=== PATIENT | female | born 1960 | race Caucasian/White ===

== ENCOUNTER 2024-12-08 12:03 | Observation (INO) ==
[2024-12-08 13:46] LABS: BASOPHILS # (AUTO) 0.1 X10^3/uL (0.0-0.1); BASOPHILS % (AUTO) 0.9 % (0.2-1.0); EOSINOPHILS # (AUTO) 0.1 x10^3/uL (0.0-0.2); HEMOGLOBIN 13.7 g/dL (12.0-16.0); LYMPHOCYTES # (AUTO) 0.6 X10^3/uL (1.3-2.9); LYMPHOCYTES % (AUTO) 8.9 % (21.0-51.0); MEAN CORPUSCULAR HEMOGLOBIN 31.8 pg (27.0-34.0); MEAN CORPUSCULAR HGB CONC 35.1 g/dL (33.0-35.0); MEAN CORPUSCULAR VOLUME 90.6 fL (80.0-100.0); MEAN PLATELET VOLUME 8.3 fL (7.4-11.0); MONOCYTES # (AUTO) 0.4 x10^3/uL (0.3-0.8); MONOCYTES % (AUTO) 6.3 % (0.0-13.0); NEUTROPHILS # (AUTO) 5.7 x10^3/uL (2.2-4.8); NEUTROPHILS % (AUTO) 82.9 % (42.0-75.0); PLATELET COUNT 136 X10^3/uL (150.0-450.0); RED BLOOD COUNT 4.31 X10^6/uL (3.5-5.4); RED CELL DISTRIBUTION WIDTH 14.3 % (11.6-16.5); WHITE BLOOD COUNT 6.9 X10^3/uL (3.6-10.0)
[2024-12-08 13:59] LABS: ALANINE AMINOTRANSFERASE 10 Units/L (12-78); ALBUMIN 2.7 g/dL (3.4-5.0); ALKALINE PHOSPHATASE 66 Units/L (46-116); ASPARTATE AMINO TRANSFERASE 11 Units/L (15-37); BLOOD UREA NITROGEN 15 mg/dL (7-18); CALCIUM 8.5 mg/dL (8.5-10.1); CHLORIDE 97 mmol/L (98-107); COR CA(FOR HYPOALB) 9.5 mg/dL (8.5-10.1); COR NA(FOR HYPERGLY) 139 mmol/L (136-145); CREATININE 0.66 mg/dL (0.55-1.02); GLUCOSE 311 mg/dL (65-99); POTASSIUM 3.5 mmol/L (3.5-5.1); SODIUM 134 mmol/L (136-145); TOTAL PROTEIN 6.6 g/dL (6.4-8.2); eGFR NON BLACK RACES > 60 (>60)
[2024-12-08 14:10] LABS: AMYLASE 12 Units/L (25-115); LIPASE 47 Units/L (16-77)
[2024-12-08] MEDS: NS 1,000 ML IV 1,000 ML IV SCH (14:27)
[2024-12-08] MEDS: DULCOLAX SUPPOSITORY 10 MG RECTAL ONE (14:28)
[2024-12-08] MEDS: PROTONIX INJ 40 MG VIAL IVP SCH (14:28)
[2024-12-08] MEDS: PHENERGAN TAB 25 MG PO PRN (14:28)
[2024-12-08] MEDS: DILAUDID INJ IVP PRN (14:29)
--- NOTE | 2024-12-08 14:36 | DR.H&P ---
H&P History & Physical for Day of: H&P Date: 12/08/24 Chief Complaint Chief Complaint: BLOOD IN STOOL, ABDOMINAL PAIN, "CAN'T EAT" History of Present Illness History of Present Illness: PT IS 64 WF, DIRECT ADMIT FROM DR GOLDSTEIN OFFICE WITH [facility]. PT CO SEVERE ABDOMINAL PAIN WITH CONSTIPATION AND RECTAL BLEEDING SINCE SATURDAY. PT WAS REFERRED TO DR WHITE IN [place] FOR POSSIBLE CHEMO, PT IS UNSURE IF SHE WANTED TO CONTINUE WITH TREATMENT DUE TO EXTREME WEAKNESS AND PAIN. PT HAD BEEN ON PO OXYCODONE, PHENERGAN, ZOFRAN AND BENTYL WITHOUT RELIEF. PT HAD NEGATIVE EXTERNAL RECTAL EXAM IN OFFICE. PT ADM ITTED FOR EVALUATION AND TREATMENT OF ACUTE ILLNESS. Past Medical History Past Medical History: Depression, Diabetes, Hypertension and [place] Past Surgical History Surgical History: Appendectomy, , CABG/Valve Surgery, Cholecystectomy and Hysterectomy Family History Family Medical History: Diabetes Mellitus Medications Home Medications: Home Medications Medication Instructions Recorded Confirmed Type amlodipine 5 mg tablet 5 mg PO QDAY 10/01/24 11/10/24 History trazodone 50 mg tablet 50 mg PO QDAY 10/01/24 11/10/24 History gabapentin 300 mg capsule 300 mg PO TID 11/10/24 11/10/24 History insulin glargine 100 unit/mL 10 unit subcut BID 11/10/24 11/10/24 History subcutaneous solution (Lantus U-100 Insulin) insulin lispro 100 unit/mL 1 sliding scale dose subcut 11/10/24 11/10/24 History subcutaneous cartridge (Humalog USEASDIRECTD U-100 Insulin) oxycodone-acetaminophen 5 mg-325 1 tab PO BID PRN 11/10/24 11/10/24 History mg tablet Allergies Allergies Allergy/AdvReac Type Severity Reaction Status Date / Time No Known Drug Allergies Allergy Verified 11/10/24 13:37 Labs 12/08/24 13:39 12/08/24 13:39 Labs: Laboratory WBC 6.9 X10^3/uL (3.6-10.0) 12/08/24 13:39 RBC 4.31 X10^6/uL (3.5-5.4) 12/08/24 13:39 Hgb 13.7 g/dL (12.0-16.0) 12/08/24 13:39 Hct 39.0 % (36.0-47.0) 12/08/24 13:39 MCV 90.6 fL (80.0-100.0) 12/08/24 13:39 MCH 31.8 pg (27.0-34.0) 12/08/24 13:39 MCHC 35.1 g/dL (33.0-35.0) H 12/08/24 13:39 RDW 14.3 % (11.6-16.5) 12/08/24 13:39 Plt Count 136 X10^3/uL (150.0-450.0) L 12/08/24 13:39 MPV 8.3 fL (7.4-11.0) 12/08/24 13:39 Neut % (Auto) 82.9 % (42.0-75.0) H 12/08/24 13:39 Lymph % (Auto) 8.9 % (21.0-51.0) L 12/08/24 13:39 Wright % (Auto) 6.3 % (0.0-13.0) 12/08/24 13:39 Eos % (Auto) 1.0 % (0.9-2.9) 12/08/24 13:39 Baso % (Auto) 0.9 % (0.2-1.0) 12/08/24 13:39 Neut # (Auto) 5.7 x10^3/uL (2.2-4.8) H 12/08/24 13:39 Lymph # (Auto) 0.6 X10^3/uL (1.3-2.9) L 12/08/24 13:39 Wright # (Auto) 0.4 x10^3/uL (0.3-0.8) 12/08/24 13:39 Eos # (Auto) 0.1 x10^3/uL (0.0-0.2) 12/08/24 13:39 Baso # (Auto) 0.1 X10^3/uL (0.0-0.1) 12/08/24 13:39 Absolute Nucleated RBC 0.0 /100WBC 12/08/24 13:39 Sodium 134 mmol/L (136-145) L 12/08/24 13:39 Corrected Sodium 139 mmol/L (136-145) 12/08/24 13:39 Potassium 3.5 mmol/L (3.5-5.1) 12/08/24 13:39 Chloride 97 mmol/L (98-107) L 12/08/24 13:39 Carbon Dioxide 27.0 mmol/L (21-32) 12/08/24 13:39 BUN 15 mg/dL (7-18) 12/08/24 13:39 Creatinine 0.66 mg/dL (0.55-1.02) 12/08/24 13:39 Est GFR (MDRD) Af Amer > 60 (>60) 12/08/24 13:39 Est GFR (MDRD) Non-Af > 60 (>60) 12/08/24 13:39 Glucose 311 mg/dL (65-99) H 12/08/24 13:39 Calcium 8.5 mg/dL (8.5-10.1) 12/08/24 13:39 Corrected Calcium 9.5 mg/dL (8.5-10.1) 12/08/24 13:39 Total Bilirubin 0.40 mg/dL (0.2-1.0) 12/08/24 13:39 AST 11 Units/L (15-37) L 12/08/24 13:39 ALT 10 Units/L (12-78) L 12/08/24 13:39 Alkaline Phosphatase 66 Units/L (46-116) 12/08/24 13:39 Total Protein 6.6 g/dL (6.4-8.2) 12/08/24 13:39 Albumin 2.7 g/dL (3.4-5.0) L 12/08/24 13:39 Globulin 3.9 g/dL (2.5-4.5) 12/08/24 13:39 Albumin/Globulin Ratio 0.7 Ratio (1.1-2.1) L 12/08/24 13:39 Amylase 12 Units/L (25-115) L 12/08/24 13:39 Lipase 47 Units/L (16-77) 12/08/24 13:39 Review of Systems Constitutional: Weakness Eyes: No Symptoms Reported ENT: No Symptoms Reported Respiratory: Shortness of Breath Cardiovascular: Palpitations Gastrointestinal: Nausea, Vomiting, Abdominal Pain, Constipation and Melena Genitourinary: Frequency Musculoskeletal: Back Pain Skin: No Symptoms Reported Neurological: Weakness Oriented: Normal Eyes: Other (MILD JAUNDICE TO SCLERA) Ear: Normal Nose: Normal Throat: Dry Respiratory: RLL Diminished and LLL Diminished Cardiovascular: Tachycardia : Frequency Auscultation: Bowel Sounds: Decreased Palpation: Liver Enlarged Tenderness: Diffuse Skin: Decreased Turgur Musculoskeletal: Back:Thoracic, Back:Lumbar and Motor Deficit Psychiatric: Anxiety and Depression Mood Description: Anxious Affect: Depressed Speech Pattern: Clear and Appropriate Assessment/Plan (1) Lower GI bleed: Status: Acute Plan: ADMIT, OCCULT STOOL BID PPI THERAPY, CBC ON ADMISSION ABD SERIES, IV HYDRATION PAIN CONTROL VERIFY HOME MEDICATIONS (2) Pancreatic cancer: Status: Acute (3) Degenerative disc disease at L5-S1 level: Status: Acute (4) COPD (chronic obstructive pulmonary disease): Status: Acute (5) Diabetes: Status: Acute (6) Dehydration: Status: Acute
--- NOTE | 2024-12-08 16:41 | RAD ---
EXAM: ACUTE ABDOMEN SERI ES HISTORY: ABDOMINAL PAIN, CONSTIPATION, RECTAL BLEED; COMPARISON: No relevant prior studies available. TECHNIQUE: AP supine and upright abdominal radiographs with chest radiography, 3 images. FINDINGS: Moderate-large stool burden throughout the majority of the colon. Gas in scattered loops of non-distended small bowel. No gross free air. No abnormal calcifications. Metallic stent in the right upper quadrant. Lungs are clear of focal airspace disease. No cardiomegaly. Status post median sternotomy. No pneumothorax. No pleural effusion. No acute osseous abnormality. IMPRESSION: Gas in scattered loops of non-distended small bowel. Findings could represent a nonspecific enteriti s, ileus or functional obstruction secondary to the patient's stool burden. Moderate-large stool bur den throughout the majority of the colon. THIS IS AN ELECTRONICALLY VERIFIED FINAL REPORT 12/08/2024 4:38 PM - Electronically signed by Sumit Lehman MD
[2024-12-08 17:41] VITALS: BMI 23.9
[2024-12-08] MEDS: ZOFRAN INJ 4 MG VIAL IVP PRN (19:27)
[2024-12-08] MEDS: SNACK - Diabetic Appropriate PO SCH (19:28)
[2024-12-08] MEDS: NovoLIN R (or HumuLIN R) SUBCUT PRN (20:31)
[2024-12-08 20:34] LABS: BILIRUBIN,URINE NEGATIVE (NEGATIVE); BLOOD/HEMOGLOBIN,URINE 1+ (NEGATIVE); GLUCOSE, URINE 4+ (NEGATIVE); KETONES,URINE NEGATIVE (NEGATIVE); LEUKOCYTE ESTERASE ,URINE NEGATIVE (NEGATIVE); NITRITES,URINE NEGATIVE (NEGATIVE); PROTEIN,URINE NEGATIVE (NEGATIVE); UROBILINOGEN,URINE NORMAL (NORMAL)
[2024-12-08 20:45] LABS: APPEARANCE,URINE HAZY (CLEAR); BACTERIA,URINE NEGATIVE /HPF (NEGATIVE); COLOR,URINE STRAW (YELLOW); RBC,URINE 0-2 /HPF (0-3); SQUAMOUS EPITHELIAL CELL,UR FEW /HPF (NEGATIVE)
[2024-12-09 05:33] LABS: BASOPHILS # (AUTO) 0.1 X10^3/uL (0.0-0.1); BASOPHILS % (AUTO) 0.9 % (0.2-1.0); EOSINOPHILS # (AUTO) 0.1 x10^3/uL (0.0-0.2); EOSINOPHILS % (AUTO) 1.5 % (0.9-2.9); HEMATOCRIT 34.2 % (36.0-47.0); HEMOGLOBIN 12.2 g/dL (12.0-16.0); LYMPHOCYTES # (AUTO) 0.7 X10^3/uL (1.3-2.9); LYMPHOCYTES % (AUTO) 10.8 % (21.0-51.0); MEAN CORPUSCULAR HEMOGLOBIN 32.1 pg (27.0-34.0); MEAN CORPUSCULAR HGB CONC 35.6 g/dL (33.0-35.0); MEAN CORPUSCULAR VOLUME 90.3 fL (80.0-100.0); MEAN PLATELET VOLUME 8.1 fL (7.4-11.0); MONOCYTES # (AUTO) 0.5 x10^3/uL (0.3-0.8); MONOCYTES % (AUTO) 8.5 % (0.0-13.0); NEUTROPHILS # (AUTO) 4.7 x10^3/uL (2.2-4.8); NEUTROPHILS % (AUTO) 78.3 % (42.0-75.0); PLATELET COUNT 128 X10^3/uL (150.0-450.0); RED BLOOD COUNT 3.79 X10^6/uL (3.5-5.4)
[2024-12-09 05:54] LABS: ALANINE AMINOTRANSFERASE 9 Units/L (12-78); ALBUMIN 2.4 g/dL (3.4-5.0); ALKALINE PHOSPHATASE 55 Units/L (46-116); ASPARTATE AMINO TRANSFERASE 11 Units/L (15-37); BLOOD UREA NITROGEN 11 mg/dL (7-18); CALCIUM 8.1 mg/dL (8.5-10.1); CARBON DIOXIDE 28.2 mmol/L (21-32); CHLORIDE 104 mmol/L (98-107); COR CA(FOR HYPOALB) 9.4 mg/dL (8.5-10.1); COR NA(FOR HYPERGLY) 142 mmol/L (136-145); CREATININE 0.51 mg/dL (0.55-1.02); GLUCOSE 178 mg/dL (65-99); POTASSIUM 3.5 mmol/L (3.5-5.1); SODIUM 140 mmol/L (136-145); TOTAL PROTEIN 5.8 g/dL (6.4-8.2); eGFR NON BLACK RACES > 60 (>60)
[2024-12-09] MEDS ORDERED: CONSULT PHARMACY - POTASSIUM & MAGNESIUM XX SCH ×2 (07:00)
[2024-12-09] MEDS: MAG-OX TAB PO SCH (08:18)
[2024-12-09] MEDS: K-DUR TAB 20 MEQ PO SCH (08:19)
[2024-12-09] MEDS: DESYREL PO SCH (08:19)
[2024-12-09] MEDS: TOPROL XL PO SCH (08:19)
[2024-12-09] MEDS: DULCOLAX TAB EC 5 MG PO ONE (08:28)
[2024-12-10] MEDS ORDERED: CONSULT PHARMACY - POTASSIUM & MAGNESIUM XX SCH (07:00)
--- NOTE | 2024-12-10 07:09 | RAD ---
EXAM: CHEST, 1 VIEW HISTORY: LOWER GI BLEED, SHORTNESS OF BREATH; COMPARISON: 10/02/2024 FINDINGS: The cardiomediastinal silhouette is stable. Similar post sternotomy changes. No acute airspace disease. No pneumothorax or effusion. No acute osseous abnormality. IMPRESSION: No acute cardiopulmonary disease. THIS IS AN ELECTRONICALLY VERIFIED FINAL REPORT 12/10/2024 7:06 AM - Electronically signed by Alvaro Jackson MD
[2024-12-10] MEDS: K-DUR TAB 20 MEQ PO SCH (08:13)
[2024-12-10] MEDS: MAG-OX TAB PO SCH (08:13)
[2024-12-10 08:38] LABS: BASOPHILS % (AUTO) 0.8 % (0.2-1.0); EOSINOPHILS # (AUTO) 0.1 x10^3/uL (0.0-0.2); EOSINOPHILS % (AUTO) 1.7 % (0.9-2.9); HEMATOCRIT 35.4 % (36.0-47.0); HEMOGLOBIN 12.2 g/dL (12.0-16.0); LYMPHOCYTES # (AUTO) 0.5 X10^3/uL (1.3-2.9); LYMPHOCYTES % (AUTO) 11.5 % (21.0-51.0); MEAN CORPUSCULAR HEMOGLOBIN 31.7 pg (27.0-34.0); MEAN CORPUSCULAR HGB CONC 34.5 g/dL (33.0-35.0); MEAN CORPUSCULAR VOLUME 91.7 fL (80.0-100.0); MEAN PLATELET VOLUME 8.9 fL (7.4-11.0); MONOCYTES # (AUTO) 0.4 x10^3/uL (0.3-0.8); MONOCYTES % (AUTO) 8.9 % (0.0-13.0); NEUTROPHILS # (AUTO) 3.7 x10^3/uL (2.2-4.8); NEUTROPHILS % (AUTO) 77.1 % (42.0-75.0); PLATELET COUNT 114 X10^3/uL (150.0-450.0); RED BLOOD COUNT 3.86 X10^6/uL (3.5-5.4); RED CELL DISTRIBUTION WIDTH 14.5 % (11.6-16.5); WHITE BLOOD COUNT 4.7 X10^3/uL (3.6-10.0)
[2024-12-10 08:42] VITALS: BP 144/76
[2024-12-10 08:46] LABS: ALANINE AMINOTRANSFERASE 11 Units/L (12-78); ALBUMIN 2.3 g/dL (3.4-5.0); ALKALINE PHOSPHATASE 59 Units/L (46-116); ASPARTATE AMINO TRANSFERASE 12 Units/L (15-37); BLOOD UREA NITROGEN 10 mg/dL (7-18); CALCIUM 7.9 mg/dL (8.5-10.1); CARBON DIOXIDE 26.6 mmol/L (21-32); CHLORIDE 103 mmol/L (98-107); COR CA(FOR HYPOALB) 9.3 mg/dL (8.5-10.1); COR NA(FOR HYPERGLY) 143 mmol/L (136-145); CREATININE 0.61 mg/dL (0.55-1.02); GLUCOSE 315 mg/dL (65-99); POTASSIUM 3.5 mmol/L (3.5-5.1); SODIUM 138 mmol/L (136-145); TOTAL PROTEIN 5.6 g/dL (6.4-8.2); eGFR NON BLACK RACES > 60 (>60)
[2024-12-10] MEDS: ROXICODONE TAB 5 MG PO PRN (10:27)
[2024-12-10 12:28] VITALS: PULSE 70; RESP 11; O2SAT 95
[2024-12-10 13:17] VITALS: TEMP 98.7
== END 2024-12-10 14:15 | disposition hospice, home (50) ==
LOC: ICU
PROVIDERS: ADMIT Internal Medicine; ATTEND Internal Medicine